=== PATIENT | male | born 1990 | race Caucasian/White ===

== ENCOUNTER 2022-11-19 09:46 | Emergency (ER) | payer OTHER ==
[2022-11-19 09:53] VITALS: BP 130/97; PULSE 72; RESP 18; TEMP 97.5; BMI 25.0
== END 2022-11-19 12:30 | disposition home or self-care (01) ==
LOC: FER 09:46 → SUPCPDRO 09:46 → FER 12:30
DX: M54.6 Pain in thoracic spine (principal); B34.9 Viral infection, unspecified
CPT/HCPCS: 0241U-QW; 72128-TC; 73030-TC-RT-FY; 99284-25